=== PATIENT | female | born 1950 | race Caucasian/White ===

== ENCOUNTER → 2016-10-25 | Outpatient (CLI) | payer BC ==
[~2016-10-25] MED LIST: ALLEGRA; AVAPRO150 MG PO; CARAFATE1 GM PO; CLARITIN10 M2 PO; ELIQUIS5 MG PO; ELMIRON100 MG PO; EXCEDRIN MIGRAI1 TA1; GABAPENTIN300 MG PO; IBUPROFEN; LOPRESSOR PO; LORTAB 7.5-5001 TAB; OMEPRAZOLE20 M1 PO; PHENERGAN; SINGULAIR; SINGULAIR PO; VESICARE PO
--- NOTE | ~2016-10-25 | MR145 ---
[facility] A Service of [facility] RADIOLOGY TEXT RESULTS PATIENT: NILA BRIGGS [facility] [birth year] UNIT #: [id number] AGE: [address]: Roscoe Bae MD SEX: F ORDER DR: [id number] [facility] [address] [facility] [place], [place] [address] [id number] O MR#: [id number] Acc #: [id number] NAME: NILA BRIGGS : 1950 SEX: F STUDY DATE/TIME: 10/25/2016 9:32 UNIT: [facility] ROOM: STUDY DESCRIPTION: MR MRCP WWo Contrast Attending Physician: Roscoe Bae M.D. Referring Physician: Roscoe Bae M.D. Ordering Physician: Roscoe Bae M.D. Primary Care Physician: Sanya Pettit M.D. MRI CENTER REPORT This report is preliminary unless electronic signature is present. EXAMINATION MRI abdomen without and with contrast, MRCP DATE 10/25/2016 HISTORY Right upper quadrant abdominal pain since 2014. Previous cholecystectomy. Patient states abnormal CT on 12/13/2015. Report from the study documents hepatic steatosis, hepatic cysts and left renal cysts and uterine fibroids. COMPARISON CT abdomen and pelvis with contrast 12/13/2015. PROCEDURE Multiplanar, multisequence imaging was obtained of the abdomen without and with contrast. 16 mL MultiHance was administered intravenously for the exam. FINDINGS The liver is markedly and diffusely steatotic but does not appear enlarged or cirrhotic. Numerous simple-appearing cysts are scattered throughout the liver parenchyma. A dominant cyst in the lateral segment left lobe measures 3.4 cm. A dominant cyst in the medial segment left lobe measures 2.4 cm. Many of the other cysts measure 1 cm or less in size. There are no suspicious enhancing liver masses or liver masses with washout characteristics. Common bile duct caliber measures 8 mm, which is within normal limits, given the patient's stated age and status post cholecystectomy. No abnormal biliary dilation is seen. The major hepatic vasculature appears well opacified. [facility] A Service of [facility] RADIOLOGY TEXT RESULTS PATIENT: NILA BRIGGS LOCATION: [facility] #: [id number] : [birth year] UNIT #: [id number] AGE: [address]: Roscoe Bae MD SEX: F ORDER DR: Pancreas appears normal. No pancreatic ductal dilation is seen. Tiny cysts and complex cysts are seen along the peripheral margins of the spleen, varying in size between 8 mm to 1.4 cm. The adrenals are normal. Bilateral renal cysts are present, with one of the largest in the right lower pole measuring 1 cm, and a dominant left renal cyst measuring 3.4 cm. No suspicious enhancing renal masses are identified. There is no ascites. There is no pathologic adenopathy. Imaged bowel appears within normal limits. Degenerative disc and endplate changes are thought to be present at L4-5. Pancreatic duct caliber appears within normal limits, with what appears to be a normal variant of sigmoid curvature in the region of the pancreatic head and neck. IMPRESSION 1. Diffuse hepatic steatosis. 2. Hepatic, renal and splenic cysts. 3. No abnormal intrahepatic or extrahepatic biliary ductal dilation. The patient is status post cholecystectomy. 4. No acute findings in the abdomen. Dictated by... Susan Alvarez M.D. THIS IS AN ELECTRONICALLY VERIFIED REPORT Susan Alvarez M.D. at 10/30/2016 3:26 PM MADAN/giulia TD: 10/26/2016 10:37 JOB #: [id number] MRI CENTER REPORT Page 1 of 1 COPY
[2016-10-25 11:51] LABS: POC - CREATININE 0.75 mg/dL (0.44-1.03); POC - GFR >60.0 mL/min (>60)
== END | disposition home or self-care (01) ==
LOC: CMRI 08:38
PROVIDERS: Internal Medicine Gastroenterology
DX: D13.4 Benign neoplasm of liver (principal); N30.10 Interstitial cystitis (chronic) without hematuria; K31.89 Other diseases of stomach and duodenum; K30 Functional dyspepsia; K76.0 Fatty (change of) liver, not elsewhere classified; N28.1 Cyst of kidney, acquired; D73.4 Cyst of spleen; B96.81 Helicobacter pylori [H. pylori] as the cause of diseases classified elsewhere; I48.91 Unspecified atrial fibrillation; Z90.79 Acquired absence of other genital organ(s); Z86.010 Personal history of colon polyps
CPT/HCPCS: 74183; 82565; A9577